=== PATIENT | female | born 1985 | race Two or more races ===

== ENCOUNTER 2018-01-15 00:58 | Outpatient (CLI) | payer OTHER ==
[2018-01-15] MEDS ORDERED: PRENATAL 19 TA1 EACH PO (02:28)
[2018-01-15] MEDS ORDERED: DIALYVITE 800-1 EACH PO (02:28)
[2018-01-15] MEDS ORDERED: NIFE60TA3 PO (02:29)
== END 2018-01-16 04:26 | disposition home or self-care (01) ==
LOC: OBS/DEL 00:58
DX: O26.892 Other specified pregnancy related conditions, second trimester (principal); R10.12 Left upper quadrant pain; Z34.02 Encounter for supervision of normal first pregnancy, second trimester

== ENCOUNTER 2018-04-18 09:43 | Outpatient (CLI) | payer OTHER ==
[~2018-04-18 09:43] MED LIST: DIALYVITE 800-1 EACH PO; NIFE60TA3 PO; PRENATAL 19 TA1 EACH PO
== END 2018-04-18 10:41 | disposition home or self-care (01) ==
LOC: NST 09:43
DX: Z34.83 Encounter for supervision of other normal pregnancy, third trimester (principal)

== ENCOUNTER 2018-04-29 22:29 | Inpatient (IN) | payer OTHER ==
[~2018-04-29] VITALS: Ht 165.1 cm; Wt 64.9 kg
== END 2018-05-02 13:16 | DRG 768 ==
LOC: LDR 22:29 → SURG-SUITE 04-30 02:23 → OB/GYN 05-05 15:28
PROVIDERS: ADMIT Specialist
PROC: 4A1HXCZ Monitoring of Products of Conception, Cardiac Rate, External Approach (ICD-10-PCS; 2018-04-29)
PROC: 10E0XZZ Delivery of Products of Conception, External Approach (ICD-10-PCS; principal; 2018-04-30)
PROC: 0DQR0ZZ Repair Anal Sphincter, Open Approach (ICD-10-PCS; 2018-04-30)
PROC: 0W8NXZZ Division of Female Perineum, External Approach (ICD-10-PCS; 2018-04-30)
DX: O70.21 Third degree perineal laceration during delivery, IIIa (principal); Z37.0 Single live birth; Z3A.39 39 weeks gestation of pregnancy